=== PATIENT | female | born 2000 | race Caucasian/White ===

== ENCOUNTER → 2020-06-29 12:43 | Outpatient (BNVA) | payer OTHER, SELFPAY | PROVIDERS: Family Provider Family Medicine; Referring Provider Nurse Practitioner Family; Visit Provider Nurse Practitioner Family | DX: Z20.828 Contact with and (suspected) exposure to other viral communicable diseases (principal) | CPT/HCPCS: 87635 ==

== ENCOUNTER → 2021-02-17 16:17 | Outpatient (BNVA) | payer OTHER, SELFPAY | PROVIDERS: Family Provider Family Medicine; Visit Provider Emergency Medicine | DX: Z20.822 Contact with and (suspected) exposure to COVID-19 (principal) | CPT/HCPCS: 87635 ==

== ENCOUNTER → 2022-09-24 14:27 | Outpatient (BNVA) | payer MEDICAID, SELFPAY | PROVIDERS: Family Provider Family Medicine; Visit Provider Emergency Medicine | DX: Z11.3 Encounter for screening for infections with a predominantly sexual mode of transmission (principal); A64 Unspecified sexually transmitted disease; N89.8 Other specified noninflammatory disorders of vagina | CPT/HCPCS: 87491; 87591; 87661 ==

== ENCOUNTER 2023-04-08 16:27 | Outpatient (CLI) | payer MEDICAID, SELFPAY ==
--- NOTE | 2023-04-08 16:34 | CT_ITS ---
WS: [id number] CT NECK WITH CONTRAST HISTORY: DYSPHONIA, SPECIFIED INJURIES OF VOCAL CORD TECHNIQUE: Contiguous 2 mm axial images are performed through the neck with intravenous contrast. Sag ittal and coronal reformats are also submitted. All CT scans at [facility] use at least one o f these dose optimization techniques: automated exposure control; mA and/or kV adjustment per patient size (includes targeted exams where dose is matched to clinical indication); or iterative reconstruc tion. CONTRAST: CONTRAST: Omnipaque 350; 100 mL IV. DLP: 143.59 mGy.cm COMPARISON: None available. There is very minimal asymmetry at the level of the vocal cords. There is very mild thickening of the LEFT aryepiglottic and very mild fullness of the LEFT piriform sinus with respect to the RIGHT side. This may represent a mild paralysis of the LEFT vocal cord. No additional abnormalities are identifi ed. Torus tubarius and fossa of Rosenmuller and parapharyngeal fat are normal. There are small numerous lymph nodes along the cervical chain. These lymph nodes remain less than a c entimeter. The greatest number of lymph nodes at levels 1 and 2. Normal size thyroid. There are very tiny nodules within the thyroid gland. Parotid and submandibular glands are negative. No osseous abnormalities. Visualized portions of the skull base demonstrate no abnormalities. Orbits and globes are within norm al limits. No soft tissue masses. Mild mucoperiosteal thickening in the maxillary sinuses, greatest on the LEFT. No air-fluid levels. Lung apices are clear. IMPRESSION: 1. Very minimal asymmetric thickening of the LEFT aryepiglottic fold and asymmetric increase in size of the LEFT piriform sinus. This may represent a mild LEFT vocal cord paralysis. 2. Small cervical chain lymph nodes as above. Likely reactive.
[2023-04-08] MEDS: iohexol 350 mg/mL 500 mL Btl (per mL) IV (16:52)
== END 2023-04-08 16:28 | disposition home or self-care (01) ==
PROVIDERS: Family Provider Family Medicine; Visit Provider Otolaryngology
DX: S19.83XA Other specified injuries of vocal cord, initial encounter (principal); R49.0 Dysphonia; X58.XXXA Exposure to other specified factors, initial encounter
CPT/HCPCS: 70491; Q9967

== ENCOUNTER 2023-07-23 12:27 | Emergency (ER) | payer MEDICAID, SELFPAY ==
[2023-07-23 12:37] VITALS: BP 117/70; PULSE 101; RESP 16; TEMP 36.7; O2SAT 97; BMI 30.4
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
--- NOTE | 2023-07-23 20:02 | DCPLANNER ---
Message sent to neurology for a referral post concussion headaches
== END 2023-07-23 15:20 | disposition home or self-care (01) ==
PROVIDERS: Emergency Provider Nurse Practitioner Family
DX: F07.81 Postconcussional syndrome (principal)
CPT/HCPCS: 70450; 99284